=== PATIENT | male | born 1990 | race Two or more races ===

== ENCOUNTER 2022-11-12 19:42 | Emergency (ER) | payer OTHER ==
[~2022-11-12] VITALS: Ht 170.2 cm; Wt 73.5 kg
== END 2022-11-12 20:32 | disposition home or self-care (01) ==
LOC: ER 19:42
DX: S61.422A Laceration with foreign body of left hand, initial encounter (principal); W25.XXXA Contact with sharp glass, initial encounter; Y93.89 Activity, other specified; Y92.89 Other specified places as the place of occurrence of the external cause; Z91.013 Allergy to seafood; Z88.6 Allergy status to analgesic agent